=== PATIENT | female | born 1960 | race Caucasian/White ===

== ENCOUNTER 2019-03-17 11:42 | Outpatient (CLI) ==
[2019-03-17] MEDS ORDERED: CLIN300C8 PO (12:51)
[2019-03-17] MEDS ORDERED: GLUC1TAB9 PO (12:51)
[2019-03-17] MEDS ORDERED: BIOT25005 PO (12:51)
[2019-03-17] MEDS ORDERED: CALC1CAP8 PO (12:51)
[2019-03-17] MEDS ORDERED: OXYC5CAP2 PO (12:51)
[2019-03-17] MEDS ORDERED: ESTR1TAB15 PO (12:51)
[2019-03-17] MEDS ORDERED: HYDR-3240 PO (12:51)
[2019-03-17] MEDS ORDERED: FLUT9.9S NAS (12:51)
[2019-03-17] MEDS ORDERED: [UNRECOGNIZED DRUG - OTHER] TP (12:51)
[2019-03-17] MEDS ORDERED: HYDR-826 PO (12:51)
[2019-03-17] MEDS ORDERED: ACET-2065 PO (12:51)
[2019-03-17] MEDS ORDERED: [UNRECOGNIZED DRUG - OTHER] PO (12:51)
[2019-03-17] MEDS ORDERED: AMIT10TA PO (12:51)
[2019-03-17] MEDS ORDERED: LORA-247 PO (12:51)
[2019-03-17] MEDS ORDERED: OMEP-110 PO (12:51)
[2019-03-17] MEDS ORDERED: TRIA15CR61 TP (12:51)
[2019-03-17] MEDS ORDERED: ALPR0.5T6 PO (12:51)
[2019-03-17] MEDS ORDERED: LISI-170 PO (12:51)
[2019-03-17] MEDS ORDERED: GABA300C10 PO (12:51)
[2019-03-17] MEDS ORDERED: FURO20TA3 PO (12:51)
[2019-03-17] MEDS ORDERED: MULT-516 PO (12:51)
[2019-03-17] MEDS ORDERED: ONDA4TAB7 PO (12:51)
[2019-03-17] MEDS ORDERED: NYSTATIN TP (12:51)
[2019-03-17] MEDS ORDERED: TIZA4TAB2 PO (12:51)
[2019-03-17] MEDS ORDERED: FERROUS SULFATE PO (12:51)
[2019-03-17] MEDS ORDERED: BENEFIBER PO (12:51)
== END 2019-03-17 23:59 | disposition home or self-care (01) ==
LOC: STAR 11:42
PROVIDERS: ATTEND Orthopaedic Surgery
DX: Z02.9 Encounter for administrative examinations, unspecified (principal)

== ENCOUNTER 2019-03-24 12:43 | Observation (INO) | payer MEDICAID ==
[~2019-03-24] VITALS: Ht 149.9 cm; Wt 47.3 kg
[~2019-03-24 12:43] MED LIST: ACET-2065 PO; ALPR0.5T6 PO; AMIT10TA PO; BENEFIBER PO; BIOT25005 PO; CALC1CAP8 PO; CLIN300C8 PO; ESTR1TAB15 PO; FERROUS SULFATE PO; FLUT9.9S NAS; FURO20TA3 PO; GABA300C10 PO; GLUC1TAB9 PO; HYDR-3240 PO; HYDR-826 PO; LISI-170 PO; LORA-247 PO; MULT-516 PO; NYSTATIN TP; OMEP-110 PO; ONDA4TAB7 PO; OXYC5CAP2 PO; TIZA4TAB2 PO; TRIA15CR61 TP; [UNRECOGNIZED DRUG - OTHER] PO; [UNRECOGNIZED DRUG - OTHER] TP
[2019-03-24] MEDS ORDERED: LACTATED RINGERS 1,000 ML IV SCH (13:12)
[2019-03-24 13:14] VITALS: BP 135/83
[2019-03-24] MEDS ORDERED: MIDAZOLAM 1 MG/ML, 2ML ONE ×2 (13:59→15:22)
[2019-03-24] MEDS ORDERED: FENTANYL PF 100 MCG/2ML ONE ×2 (13:59→15:55)
[2019-03-24] MEDS ORDERED: PROPOFOL 50 ML ONE (14:01)
[2019-03-24] MEDS ORDERED: KETOROLAC 60 MG/2 ML ONE (14:03)
[2019-03-24] MEDS ORDERED: TRANEXAMIC ACID 100 MG/ML, 10ML ONE ×2 (14:03)
[2019-03-24] MEDS ORDERED: EPINEPHRINE 1 MG/ML, 1ML ONE (14:03)
[2019-03-24] MEDS ORDERED: ROPIvacaine/PF 0.2%, 20 ML ONE (14:03)
[2019-03-24] MEDS ORDERED: SCOPOLAMINE PATCH, 1.5MG PATCH.TD72 TD ONE ×2 (14:07)
[2019-03-24] MEDS ORDERED: GLYCOPYRROLATE 0.2MG/1ML, 5ML ONE (15:24)
[2019-03-24] MEDS ORDERED: DEXAMETHASONE 4 MG/ML, 1ML ONE (15:24)
[2019-03-24] MEDS ORDERED: PROPOFOL 10 MG/ML, 20ML ONE (15:24)
[2019-03-24] MEDS ORDERED: NEOSTIGMINE 1 MG/ML, 10ML ONE (15:24)
[2019-03-24] MEDS ORDERED: SUCCINYLCHOLINE 20 MG/ML, 10ML ONE ×2 (15:24)
[2019-03-24] MEDS ORDERED: CEFAZOLIN 1,000 MG ONE (15:24)
[2019-03-24] MEDS ORDERED: ONDANSETRON 2MG/ML, 2ML ONE (15:24)
[2019-03-24] MEDS ORDERED: ROCURONIUM 10MG/ML,5ML ONE (15:24)
[2019-03-24] MEDS ORDERED: OXYcodone 5 MG/5 ML ORAL.SOL UDC PO PRN ×2 (15:30→16:00)
[2019-03-24] MEDS ORDERED: MEPERIDINE/PF 25MG/0.5ML IVPush PRN (15:30)
[2019-03-24] MEDS ORDERED: PROMETHAZINE 25 MG/ML, 1ML IV PRN (15:30)
[2019-03-24] MEDS ORDERED: ACETAMINOPHEN 325 MG TABLET PO PRN (15:30)
[2019-03-24] MEDS ORDERED: HYDROmorphone 2 MG/ML, 1ML IVPush PRN (15:30)
[2019-03-24] MEDS ORDERED: ALBUTEROL SULFATE 2.5 MG/3 ML NPPB PRN (15:30)
[2019-03-24] MEDS ORDERED: DIAZEPAM 5 MG/ML, 2ML IVPush PRN (15:30)
[2019-03-24] MEDS ORDERED: hydrALAzine 20 MG/ML, 1ML IV PRN (15:30)
[2019-03-24] MEDS ORDERED: LABETALOL 5MG/ML, 20ML IV PRN (15:30)
[2019-03-24] MEDS ORDERED: MEPERIDINE/PF 25MG/ML,1ML ONE (15:37)
[2019-03-24] MEDS ORDERED: OXYcodone 5 MG/5 ML ORAL.SOL UDC ONE (15:56)
[2019-03-24] MEDS: FENTANYL PF 100 MCG/2ML IV PRN ×2 (16:00→16:08)
[2019-03-24] MEDS ORDERED: HYDROcodone/APAP 5/325 TABLET PO PRN ×2 (16:00)
[2019-03-24] MEDS ORDERED: DIPHENHYDRAMINE 50 MG/ML, 1ML IVPush PRN (16:00)
[2019-03-24] MEDS ORDERED: MORPHINE SULFATE 4 MG/ML, 1ML IVPush PRN (16:00)
[2019-03-24] MEDS ORDERED: SCOPOLAMINE PATCH, 1.5MG PATCH.TD72 TD SCH (16:00)
[2019-03-24] MEDS ORDERED: OXYcodone/APAP 5/325MG TABLET PO PRN (16:00)
[2019-03-24] MEDS ORDERED: ONDANSETRON 4 MG TABLET PO PRN (16:00)
[2019-03-24] MEDS ORDERED: HYDROmorphone 1 MG/ML, 1ML VIAL ONE (16:12)
[2019-03-24] MEDS: HYDROmorphone 2 MG/ML, 1ML IVPush PRN ×2 (16:14→16:25)
[2019-03-24] MEDS ORDERED: ONDANSETRON ODT 4 MG ONE (17:32)
[2019-03-24] MEDS ORDERED: FUROSEMIDE 20 MG TABLET PO SCH (21:00)
[2019-03-24] MEDS ORDERED: AMITRIPTYLINE 10 MG TABLET PO SCH (21:00)
[2019-03-24] MEDS ORDERED: DOCUSATE 100 MG CAPSULE PO SCH (21:00)
[2019-03-25] MEDS ORDERED: ESTRADIOL 1 MG TABLET PO SCH (09:00)
[2019-03-25] MEDS ORDERED: OMEPRAZOLE 20 MG CAPSULE.DR PO SCH (09:00)
[2019-03-25] MEDS ORDERED: GABAPENTIN 300 MG CAPSULE PO SCH (09:00)
[2019-03-25] MEDS ORDERED: LORATADINE 10 MG TABLET PO SCH (09:00)
[2019-03-25] MEDS ORDERED: LISINOPRIL 20 MG TABLET PO SCH (09:00)
[2019-03-25] MEDS ORDERED: ASPIRIN 81 MG TABLET EC PO SCH (18:00)
== END 2019-03-24 18:10 | disposition home or self-care (01) ==
LOC: OUT 12:43 → ORIP 15:36
PROVIDERS: ADMIT Orthopaedic Surgery; ATTEND Orthopaedic Surgery
DX: M76.32 Iliotibial band syndrome, left leg (principal); M25.552 Pain in left hip; G89.29 Other chronic pain; M19.90 Unspecified osteoarthritis, unspecified site; I10 Essential (primary) hypertension; Z88.0 Allergy status to penicillin; Z79.899 Other long term (current) drug therapy
CPT/HCPCS: 27305; G0378; J0171; J0330; J0690; J1100; J1170; J1885; J2175; J2250; J2405; J2704; J2795; J3010; J7120; Q0162; J2710